=== PATIENT | female | born 1985 | race Caucasian/White ===

== ENCOUNTER → 2021-06-14 12:58 | Outpatient (BNVA) | payer BC, SELFPAY | PROVIDERS: Visit Provider Nurse Practitioner Women's Health | DX: N92.6 Irregular menstruation, unspecified (principal); E89.0 Postprocedural hypothyroidism; Z86.32 Personal history of gestational diabetes | CPT/HCPCS: 81025 ==

== ENCOUNTER → 2021-06-15 15:00 | Outpatient (BNVA) | payer BC, SELFPAY | PROVIDERS: Visit Provider Obstetrics & Gynecology | DX: Z86.32 Personal history of gestational diabetes (principal) | CPT/HCPCS: 82950 ==

== ENCOUNTER → 2021-09-07 10:30 | Outpatient (BNVA) | payer BC, SELFPAY | PROVIDERS: Visit Provider Nurse Practitioner Family | DX: Z20.822 Contact with and (suspected) exposure to COVID-19 (principal) | CPT/HCPCS: 87426 ==

== ENCOUNTER 2021-12-18 10:38 | Outpatient (CLI) | payer BC, SELFPAY ==
--- NOTE | 2021-12-18 11:09 | US_ITS ---
WS: [id number] ULTRASOUND OB FOCUSED HISTORY: HYPOTHYROIDISM/SUPERVISION OF ELDERLY MULTIGRAVIDA, amniotic fluid index. COMPARISON: 06/15/2021 Single intrauterine gestation is present in vertex position. Heart rate at 180 bpm. Amniotic fluid index is calculated at 12.6 cm which is just below the 50th percentile. US/US OB limited [id number] IMPRESSION: Amniotic fluid index just below the 50th percentile for age.
== END 2021-12-18 10:39 | disposition home or self-care (01) ==
LOC: RAD 10:52
PROVIDERS: PCP Family Medicine; Visit Provider Family Medicine
DX: O09.521 Supervision of elderly multigravida, first trimester (principal); E03.9 Hypothyroidism, unspecified
CPT/HCPCS: 76815

== ENCOUNTER 2021-12-18 11:45 | Outpatient (CLI) | payer BC, SELFPAY ==
[2021-12-18 11:53] VITALS: RESP 16
[2021-12-18 11:54] VITALS: BP 139/80; PULSE 94; TEMP 36
[2021-12-18 12:09] VITALS: BP 129/72; PULSE 91
== END 2021-12-18 12:20 | disposition home or self-care (01) ==
LOC: OPOB 11:48 → OBGYN 11:49
PROVIDERS: PCP Family Medicine; Visit Provider Family Medicine
DX: O99.280 Endocrine, nutritional and metabolic diseases complicating pregnancy, unspecified trimester (principal); Z3A.00 Weeks of gestation of pregnancy not specified
CPT/HCPCS: 59025

== ENCOUNTER 2021-12-25 10:13 | Outpatient (CLI) | payer BC, SELFPAY ==
--- NOTE | 2021-12-25 10:23 | US_ITS ---
WS: [id number] ULTRASOUND OB LIMITED TECHNIQUE: Limited ultrasound examination of the fetus. CLINICAL INFORMATION: ZACKARY/HYPOTHYROIDISM COMPARISON: December 18, 2021 FINDINGS: Cervix measures 4.6 cm Single interuterine gestation. presentation is cephalic Placental location is fundal. Placenta grade: 0. heart rate 160 BPM. ZACKARY 11.4 cm [place] [id number] IMPRESSION: 1. Since C1-C2 years gestation with vertex presentation. 2. Fundal placenta. 3. Cervix measures 4.6 cm. 4. ZACKARY 11.4 cm just below the median for gestational age. This compares to 12. 5 cm on December 18, 2021
== END 2021-12-25 10:14 | disposition home or self-care (01) ==
LOC: RAD 10:18
PROVIDERS: PCP Family Medicine; Visit Provider Family Medicine
DX: O09.521 Supervision of elderly multigravida, first trimester (principal); E03.9 Hypothyroidism, unspecified; Z3A.00 Weeks of gestation of pregnancy not specified
CPT/HCPCS: 76816

== ENCOUNTER 2021-12-25 11:15 | Outpatient (CLI) | payer BC, SELFPAY ==
[2021-12-25 11:24] VITALS: BP 112/71; PULSE 96; TEMP 35.9
[2021-12-25 11:31] VITALS: BMI 31.3
--- NOTE | 2021-12-25 11:43 | P.ANESASSM_ITS ---
Pre-Anesthetic Assessment Height/Weight: Height 1.68 m Temp Pulse BP 96.6 F L 96 112/71 12/25/21 11:24 12/25/21 11:24 12/25/21 11:24 Was Beta Abigail taken within 24 hours: N/A Was Clonidine taken within 24 hours: N/A Social No alcohol and No tobacco Exam alert, oriented x 3, clear to auscultation bilaterally and regular rate & rhythm Airway Submandibular: within normal limits Cervical ROM: within normal limits Mallampati: Class III Pulmonary None reported CV/HEM None reported None reported Hepatic None reported GI Gastroesophageal Reflux Disease Metabolic Thyroid Disease Status post radioactive iodine treatment for Graves disease now hypothyroid Hx of gestational diabetes Musc/skel Hx of bulging disc L5-S1 Neuropsych None reported Anesthetic Plan ASA status: 2 Anesthesia: Anesthesia Evaluation and Regional (specify below) Other: I discussed with patient the risk and benefits of labor epidural including PDPH, hypotension, back pain/discomfort/bruising, catastrophic nerve injury including paralysis, abscess, hematoma, failed block, one sided block, and LAST. Patient consents to labor epidural and in case of emergency consents to general anesthesia. Risk of > 500 ml blood loss (7ml/kg in children): No Medications/Allergies Home Medications Medication Instructions Recorded Confirmed Last Taken Type cholecalciferol (vitamin D3) 10 10 mcg PO DAILY 06/14/21 09/07/21 Unknown History mcg (400 unit) capsule levothyroxine 112 mcg tablet 112 mcg PO DAILY 06/14/21 09/07/21 Unknown History (Synthroid) prenat.vits,christine,[id number]-[id number] 1 tab PO DAILY 06/14/21 09/07/21 Unknown History Allergies Allergy/AdvReac Type Severity Reaction Status Date / Time No Known Allergies Allergy Verified 09/07/21 07:35 [facility], LAT[facility] Anesthesia Medical History Graves disease has appt with [facility] endocrinology 06/18/2021 History of gestational diabetes diet controlled History of radioactive iodine thyroid ablation (~2018) No pertinent past medical history neghx: htn,dm,dvt/pe PCP: none Vitiligo Surgical History History of deviated nasal septum 2018--nasal repair done Family History Grandmother Thyroid disease Maternal Diabetes Paternal Father Heart disease Hypertension Hypercholesteremia Grandfather Heart disease Paternal Family/Other Heart disease Paternal uncle Mother Hypertension Hypercholesteremia Denies family history of Cervical cancer Ovarian cancer Breast cancer Uterine cancer Social History Smoking and tobacco status: never smoked Data Anesthesia Cardiac Studies: No Data to Display
[2021-12-25 11:50] VITALS: BP 112/71; PULSE 96; RESP 18; TEMP 35.9
== END 2021-12-25 11:49 | disposition home or self-care (01) ==
LOC: OPOB 11:16 → OBGYN 11:17
PROVIDERS: PCP Family Medicine; Visit Provider Family Medicine
DX: O26.899 Other specified pregnancy related conditions, unspecified trimester (principal); Z3A.00 Weeks of gestation of pregnancy not specified
CPT/HCPCS: 59025

== ENCOUNTER 2022-01-01 10:45 | Outpatient (CLI) | payer BC, SELFPAY ==
--- NOTE | 2022-01-01 11:33 | US_ITS ---
WS: [id number] ULTRASOUND OB LIMITED TECHNIQUE: Limited ultrasound examination of the fetus. CLINICAL INFORMATION: SUPERVISION OF ELDERLY MULTIGRAVIDA/ZACKARY COMPARISON: December 25, 2021 FINDINGS: Cervix measures 4.2 cm Single interuterine gestation. presentation is vertex Placental location is fundal. Placenta grade: 1 heart rate 164 BPM. ZACKARY 10.0 cm compared to 11.4 cm December 25, 2021 US/[place] [id number] IMPRESSION: 1. Closed cervix measures 4.2 CM. 2. Single intrauterine gestation with vertex presentation. 3. ZACKARY 10.0 cm at the 10th percentile for gestational age 4. Single intrauterine gestation with vertex presentation.
== END 2022-01-01 10:46 | disposition home or self-care (01) ==
PROVIDERS: PCP Family Medicine; Visit Provider Family Medicine
DX: O09.529 Supervision of elderly multigravida, unspecified trimester (principal)
CPT/HCPCS: 76816

== ENCOUNTER 2022-01-01 11:58 | Outpatient (CLI) | payer BC, SELFPAY ==
[2022-01-01 12:06] VITALS: RESP 17
[2022-01-01 12:09] VITALS: BMI 31.9
[2022-01-01 12:14] VITALS: BP 117/68; PULSE 100; TEMP 35.9
[2022-01-01 12:30] VITALS: BP 113/66; PULSE 87
[2022-01-01 12:44] VITALS: BP 109/63; PULSE 90
== END 2022-01-01 12:54 | disposition home or self-care (01) ==
LOC: OPOB 11:59 → OBGYN 11:59
PROVIDERS: PCP Family Medicine; Visit Provider Family Medicine
DX: O99.280 Endocrine, nutritional and metabolic diseases complicating pregnancy, unspecified trimester (principal); Z3A.00 Weeks of gestation of pregnancy not specified
CPT/HCPCS: 59025

== ENCOUNTER 2022-01-08 10:49 | Outpatient (CLI) | payer BC, SELFPAY ==
--- NOTE | 2022-01-08 10:59 | US_ITS ---
WS: [id number] BIOPHYSICAL PROFILE AMNIOTIC FLUID HISTORY: Hypothyroidism, SUPERVISION COMPARISON: 01/01/2022. Cardiac activity: 160 bpm. Cervix: closed. Placenta: Fundal, no previa or abruption. Placenta grade: 2 Parameters are as follows: Breathin Movement: 2 Tone: 2 Fluid volume: 2 Amniotic fluid index: 7.2 cm. Largest vertical pocket 2.3 cm. US/US OB F/U w BPP wo NST IMPRESSION: 1. Biophysical profile score: 8/8. 2. Oligohydramnios. Notified Jordan Archuleta MD at time of examination by brand representative.
== END 2022-01-08 10:50 | disposition home or self-care (01) ==
PROVIDERS: PCP Family Medicine; Visit Provider Family Medicine
DX: E03.9 Hypothyroidism, unspecified (principal); O09.521 Supervision of elderly multigravida, first trimester; O41.01X0 Oligohydramnios, first trimester, not applicable or unspecified
CPT/HCPCS: 76816; 76819

== ENCOUNTER 2022-01-08 11:45 | Outpatient (CLI) | payer BC, SELFPAY ==
[2022-01-08 11:45] VITALS: BMI 32.5
[2022-01-08 11:53] VITALS: BP 120/65; PULSE 107
[2022-01-08 12:30] VITALS: BP 120/65; PULSE 107
== END 2022-01-08 12:30 | disposition home or self-care (01) ==
LOC: OPOB 11:45 → OBGYN 11:46
PROVIDERS: PCP Family Medicine; Visit Provider Family Medicine
DX: O09.519 Supervision of elderly primigravida, unspecified trimester (principal); Z3A.00 Weeks of gestation of pregnancy not specified
CPT/HCPCS: 59025; 99211

== ENCOUNTER → 2022-01-09 10:12 | Outpatient (BNVA) | payer BC, SELFPAY | PROVIDERS: PCP Family Medicine; Visit Provider Family Medicine | DX: Z01.812 Encounter for preprocedural laboratory examination (principal); Z20.822 Contact with and (suspected) exposure to COVID-19 | CPT/HCPCS: 87635 ==

== ENCOUNTER 2022-01-10 06:04 | Inpatient (IN) | payer BC, SELFPAY ==
[2022-01-10] VITALS (60 sets, daily range): BP systolic 100–130; BP diastolic 55–74; PULSE 72–97; RESP 16; TEMP 35.8–35.9; O2SAT 96–100
[2022-01-10 07:01] LABS: Basophils % 0.3 %; Eosinophils # 0.1 10^3/uL (0.0-0.8); Eosinophils % 0.8 %; Hematocrit 37.1 % (37.0-47.0); Hemoglobin 12.4 g/dL (11.5-15.3); Lymphocytes # 2.1 10^3/uL (0.8-4.8); Lymphocytes % 23.2 %; Mean Corpuscular HGB Conc 33.4 g/dL (30.0-36.0); Mean Corpuscular Hemoglobin 30.1 pg (28.0-34.0); Mean Platelet Volume 10.4 fL (7.4-10.4); Monocytes # 0.5 10^3/uL (0.2-0.9); Monocytes % 5.7 %; Neutrophils % 69.4 %; Nucleated Red Blood Cells % 0 %; Platelet Count 197 10^3/cmm (130-400); Red Blood Count 4.12 10^6/uL (4.1-5.3); Red Cell Distribution Width 13.4 % (12.1-15.1); White Blood Count 9.1 10^3/uL (4.0-10.0)
[2022-01-10] MEDS: miSOPROStol 100 mcg tablet 25 MCG VAGINAL ×2 (07:21→11:25)
--- NOTE | 2022-01-10 08:40 | P.HP_ITS ---
Providers/Chief Complaint Admitting Physician: Jordan Archuleta MD Primary Care Provider: Jordan Archuleta MD Chief Complaint: INDUCTION OF LABOR History of Present Illness Alexia Chaudhry is a 36 year old at 39.2 weeks by LMP consistent with 8-week ultrasound. Her is complicated by advanced maternal age, hypothyroidism on levothyroxine, ZACKARY of 7.2, elevated 1 hour GTT with normal 3- hour GTT. The patient presents to labor and delivery triage for induction of labor secondary to borderline oligohydramnios. The patient feels well at this time. She denies any chest pains, shortness of breath, nausea, vomiting, diarrhea, constipation, fever, dysuria, leakage of fluid, vaginal bleeding. Upon admission the patient is 1 cm dilated, thick and high. Medications/Allergies Home Medications Medication Instructions Recorded Confirmed Last Taken Type levothyroxine 112 mcg tablet 112 mcg PO DAILY 06/14/21 01/10/22 01/10/22 04:00 History (Synthroid) prenat.vits,christine,fav-itwr-hjclm 1 tab PO DAILY 06/14/21 01/10/22 1 Day Ago History ~01/09/22 Allergies Allergy/AdvReac Type Severity Reaction Status Date / Time No Known Allergies Allergy Verified 01/10/22 06:34 PFSH Acute PFSH: Medical History Graves disease has appt with [facility] endocrinology 06/18/2021 History of gestational diabetes diet controlled History of radioactive iodine thyroid ablation (~2017) No pertinent past medical history neghx: htn,dm,dvt/pe PCP: none Vitiligo Surgical History History of deviated nasal septum 2018--nasal repair done Family History Grandmother Thyroid disease Maternal Diabetes Paternal Father Heart disease Hypertension Hypercholesteremia Grandfather Heart disease Paternal Family/Other Heart disease Paternal uncle Mother Hypertension Hypercholesteremia Denies family history of Cervical cancer Ovarian cancer Breast cancer Uterine cancer Social History Smoking and tobacco status: never smoked Female Reproductive History: : 2 Vitals/I&O/Wt Last Vital Signs Pulse 87 01/10/22 08:12 Resp 16 01/10/22 06:26 BP 117/66 01/10/22 08:12 Weight last 48 hrs Weight 202 lb Physical Exam Narrative: General: Alert and oriented x3 Eyes: Pupils equal round and reactive to light and accommodation Mouth: Mucous membranes moist, pharynx non-erythematous Cardiac: Regular rate and rhythm without murmurs Lungs: Clear to auscultation bilaterally without wheezes, crackles or rhonchi Abdomen: Soft, non-tender, fundus consistent with gestational age Extremities: Trace edema in the bilateral lower extremities Data : 01/10/22 06:35 A&P Assessment and plan (1) Intrauterine : Status: Acute (2) Hypothyroidism associated with surgical procedure: Status: Acute (3) Oligohydramnios: Status: Acute Plan The patient is doing well at this time. heart tones are in the mid 140s with moderate variability and good accelerations with a category 1 heart tone tracing. The patient is not having significant contractions on her own. We will plan to place Cytotec for induction of labor secondary to borderline oligohydramnios and proceed from there. All questions were answered. The patient and her are in agreement with current plan of care. Attestations Medical Necessity Statement*: The patient will be here for greater than 2 midnights due to routine intrapartum and management of labor and delivery. Coding Level of Care Code Acute Chinese Language Professor for Chg Fwd Diagnoses Intrauterine Z34.90 Hypothyroidism associated with surgical procedure E89.0 Oligohydramnios O41.00X0
[2022-01-10] MEDS: lactated ringers 1,000 ML 999 ML IV ×2 (18:16→19:17)
[2022-01-10] MEDS: ondansetron 2 mg/ML SDV 2 mL 4 MG IVP (18:47)
--- NOTE | 2022-01-10 19:19 | ANES.PAUD2 ---
Pre-Anesthetic Update Pre-Anesthetic Assessment: Date of Surgery/Procedure: 01/10/22 Any changes to Pre-Anesthetic Assessment?: No Labs Last 48hrs: Short CBC 01/10/22 Range/Units 06:35 WBC 9.1 (4.0-10.0) 10^3/ uL Hgb 12.4 (11.5-15.3) g/dL Hct 37.1 (37.0-47.0) % MCV 90.0 (81-99) fl Plt Count 197 (130-400) 10^3/c mm Neut % (Auto) 69.4 % Neut # (Auto) 6.30 (1.8-7.7) 10^3/u L Vitals: Temperature 96.4 F L 01/10/22 13:43 Pulse Rate 77 01/10/22 19:16 Pulse Rhythm 01/10/22 06:52 Pulse Strength 3+ Normal 01/10/22 08:00 Respiratory Rate 16 01/10/22 06:26 Respiratory Effort Non-Labored 01/10/22 06:52 Respiratory Depth Normal 01/10/22 06:52 Respiratory Patter n 01/10/22 08:00 Blood Pressure 129/67 01/10/22 19:16 Pulse Oximetry 98 01/10/22 19:12 Oxygen Delivery Me thod 01/10/22 06:52 Exam: Pre-Anes Outpt Exam: alert, oriented x 3, clear to auscultation bilaterally and regular rate & rhythm Cardiac Studies: No Data to Display
--- NOTE | 2022-01-10 19:19 | ANES.PROC ---
Anesthesia Procedures Procedure/Date: 01/10/22 Epidural: Time Out Performed: Yes Consents Signed: Procedure Consent Consent: requested by attending/covering physician, from patient, risks and benefits reviewed and patient agrees to proceed Lumbar Level: L3-L4 Epidural position: sitting Epidural procedure: sterile prep of area, 1% lidocaine to numb the area, 18 g needle, neg for paresthesia, test dose given, 1.5% xylocaine 1:200k epi, placed PCEA, no systemic response, sterile dressing applied and 0.2% Ropiavacaine @ mls/hr (13) Additional Comments: HUGH at 5cm, cath at 10cm, bolused 5mls of 2% lido PF
[2022-01-10] MEDS: dextrose 5%-lactated ringers 1,000 ML 125 ML IV (20:17)
[2022-01-10] MEDS: oxytocin 30 UNIT/500 ML BAG IV (22:44)
[2022-01-11] VITALS (22 sets, daily range): BP systolic 96–127; BP diastolic 53–78; PULSE 66–93; RESP 16–18; TEMP 35.8–36.8; O2SAT 96–98
--- NOTE | 2022-01-11 03:17 | PM.DELIVERY ---
Delivery Note: Date of delivery: January 11, 2022 Pre-delivery diagnoses: 1. Intrauterine at 39.3 weeks gestation 2. Hypothyroidism on levothyroxine 3. Borderline oligohydramnios 4. Advanced maternal age 5. Elevated 1 hour GTT with normal 3-hour GTT Post-delivery diagnoses: 1. Intrauterine status post spontaneous vaginal delivery at 39.3 weeks gestation 2. Hypothyroidism on levothyroxine 3. Borderline oligohydramnios 4. Advanced maternal age 5. Elevated 1 hour GTT with normal 3-hour GTT Procedure: Spontaneous vaginal delivery Delivering Physician: Jordan Archuleta MD Estimated blood loss (mL): 100 Findings: Alexia Chaudhry is a 36 year old G2 now P2 status post spontaneous vaginal delivery at 39.3 weeks by LMP consistent with 8-week ultrasound.? Her was complicated by advanced maternal age, hypothyroidism on levothyroxine, ZACKARY of 7.2, elevated 1 hour GTT with normal 3-hour GTT. Pre-Delivery Course: The patient was admitted for induction of labor on the morning of 01/10/2022 secondary to borderline oligohydramnios and being past 39 weeks gestation. She was 1 cm dilated upon admission and given Cytotec. She received 2 doses of Cytotec and began to have regular contractions and made good change. By the evening she was changing to 3 to 4 cm, so she received a laboring epidural. The patient continued to make good change but her contractions started to space out, so she was started on IV Pitocin for augmentation of labor. The patient was complete by 12:26 AM on 01/11/2022. Delivery: The patient began pushing at 12:51 AM on 01/11/2022. The patient pushed well and the delivered in the OA position at 12:53 AM on 01/11/2022. The right shoulder was the anterior shoulder and it delivered with ease. The rest of the infant delivered with ease. The infant's mouth and nose were bulb suctioned by myself. The was placed on the mother's chest where the nurses were waiting to care for her. The infant had a weak cry upon delivery. The 's cord was clamped after approximately 1.5 minutes by myself and cut by the 's father. Cord blood was obtained. The cord was then drained of blood and uterine massage was carried out. The placenta delivered without complication at 12:58 AM on 01/11/2022. The placenta was noted to be intact with a central umbilical cord insertion site. The uterus was massaged and noted to be firm and midline. The cervix was inspected and no lacerations were noted. The vaginal was inspected and no lacerations were noted. There was a minimal abrasion present. It was not bleeding. No suturing was necessary. Currently the patient is doing well. History History History 1 Term 1 Miscarriages/Ectopic 0 0 Living Children 1 A&P Assessment and plan (1) Spontaneous vaginal delivery: Status: Acute Coding Level of Care Code Acute Storeroom Clerk for Chg Fwd Diagnoses Spontaneous vaginal delivery O80
[2022-01-11] MEDS: ibuprofen 800 mg tablet PO ×3 (04:16→21:04)
[2022-01-11] MEDS: lanolin oint 7 gm 1 APPLIC TOPICAL (04:16)
[2022-01-11] MEDS: benzocaine-menthol 78 gm Canister 1 SPRAY TOPICAL (04:17)
[2022-01-11] MEDS: docusate sodium 100 mg Capsule PO ×2 (08:00→18:34)
[2022-01-11] MEDS: levothyroxine 137 mcg Tablet PO (08:00)
[2022-01-11] MEDS: HYDROcodone-acetaminophen 5-325 mg Tablet PO (10:01)
[2022-01-11] MEDS: prenatal vitamin Capsule 1 CAP PO (15:01)
[2022-01-11 15:18] LABS: Hematocrit 37.9 % (37.0-47.0); Hemoglobin 12.7 g/dL (11.5-15.3); Mean Corpuscular HGB Conc 33.5 g/dL (30.0-36.0); Mean Corpuscular Hemoglobin 30.3 pg (28.0-34.0); Mean Corpuscular Volume 90.5 fl (81-99); Platelet Count 192 10^3/cmm (130-400); Red Blood Count 4.19 10^6/uL (4.1-5.3); Red Cell Distribution Width 13.4 % (12.1-15.1); White Blood Count 12.7 10^3/uL (4.0-10.0)
[2022-01-12 05:00] VITALS: BP 121/74; PULSE 89; RESP 18; TEMP 36.6
[2022-01-12] MEDS: levothyroxine 137 mcg Tablet PO (07:46)
[2022-01-12 07:48] VITALS: PULSE 160; RESP 40; TEMP 36.8; O2SAT 98
--- NOTE | 2022-01-12 08:09 | P.PN_ITS ---
Subjective Subjective: The patient is doing well today. She is ambulating, voiding, passing gas and tolerating food by mouth. Her bleeding is slowing down well her pain is well controlled. Vitals/I&O/Wt Last Vital Signs Temp 98.3 F 01/12/22 07:48 Pulse 160 H 01/12/22 07:48 Resp 40 H 01/12/22 07:48 BP 121/74 01/12/22 05:00 Pulse Ox 98 01/12/22 07:48 01/11/22 01/12/22 01/12/22 22:59 06:59 14:59 Intake Total 1999 Balance 1999 Physical Exam Narrative: General: Alert and oriented x3 Cardiac: Regular rate and rhythm without murmurs Lungs: Clear to auscultation bilaterally without wheezes, crackles or rhonchi Abdomen: Soft, mild tenderness over uterus. The uterus is firm and 2 cm below the umbilicus. Extremities: Trace edema in the bilateral lower extremities Urinary Catheter Management: Mckeon: Cath Placed During This Visit: yes, but has since been removed by the nurse Reason for Continuing Indwelling Catheter: Decision to DC Catheter Urinary Catheter Date of Insertion: 01/10/22 Urinary Catheter Time of Insertion: 19:40 Date Urinary Catheter Removed: 01/11/22 Time Urinary Catheter Discontinued: 00:46 Data : 01/11/22 15:05 A&P Assessment and plan (1) Spontaneous vaginal delivery: Status: Acute Plan The patient is doing well at this time. She is showing no signs of complications. Her hemoglobin is stable. We will plan to discharge home tomorrow as long as she continues to do well . Attestations Medical Necessity Statement*: The patient's stay will cross 2 midnights as she recovers after vaginal delivery. Coding Level of Care Code Acute Senior Technical Support Analyst for [employer] Diagnoses Spontaneous vaginal delivery O80
[2022-01-12] MEDS: ibuprofen 800 mg tablet PO ×3 (08:37→20:22)
[2022-01-12] MEDS: docusate sodium 100 mg Capsule PO ×2 (08:37→18:40)
[2022-01-12 11:42] VITALS: BP 114/69; PULSE 79; RESP 18
[2022-01-12 18:14] VITALS: BP 128/71; PULSE 80; RESP 18; TEMP 36.8
[2022-01-12] MEDS: prenatal vitamin Capsule 1 CAP PO (18:40)
[2022-01-12 21:00] VITALS: BP 118/66; PULSE 91; RESP 18; TEMP 36.7
[2022-01-13 03:00] VITALS: BP 120/74; PULSE 80; RESP 18; TEMP 36.7
[2022-01-13] MEDS: levothyroxine 137 mcg Tablet PO (07:53)
--- NOTE | 2022-01-13 08:27 | PM.DCS ---
Discharge Providers Date of Admission: 01/10/22 06:04 Date of Discharge: January 13, 2022 Attending Provider at Admission: Jordan Archuleta MD Attending Provider at Discharge: Jordan Archuleta MD Primary Care Provider: Jordan Archuleta MD Diagnoses at Discharge Discharge Diagnosis (1) Spontaneous vaginal delivery: Status: Acute Other Information Additional DC diagnoses/information: 1.? Intrauterine status post spontaneous vaginal delivery at 39.3 weeks gestation 2.? Hypothyroidism on levothyroxine 3.? Borderline oligohydramnios 4.? Advanced maternal age 5.? Elevated 1 hour GTT with normal 3-hour GTT 6. Delivery of female weighing 6 pounds 7 ounces with Apgars of 6 and 8 Reason for Visit Reason for Visit: INDUCTION OF LABOR Hospital Course Hospital Course Predelivery course: The patient was admitted for induction of labor on the morning of 01/10/2022 secondary to borderline oligohydramnios and being past 39 weeks gestation.? She was 1 cm dilated upon admission and given Cytotec.? She received 2 doses of Cytotec and began to have regular contractions and made good change.? By the evening she was changing to 3 to 4 cm, so she received a laboring epidural.? The patient continued to make good change but her contractions started to space out, so she was started on IV Pitocin for augmentation of labor.? The patient was complete by 12:26 AM on 01/11/2022. Delivery: The patient began pushing at 12:51 AM on 01/11/2022.? The patient pushed well and the infant delivered in the OA position at 12:53 AM on 01/11/2022.? The right shoulder was the anterior shoulder and it delivered with ease.? The rest of the infant delivered with ease.? The infant's mouth and nose were bulb suctioned by myself.? The was placed on the mother's chest where the nurses were waiting to care for her.? The had a weak cry upon delivery.? The infant's cord was clamped after approximately 1.5 minutes by myself and cut by the infant's father.? Cord blood was obtained.? The cord was then drained of blood and uterine massage was carried out.? The placenta delivered without complication at 12:58 AM on 01/11/2022.? The placenta was noted to be intact with a central umbilical cord insertion site.? The uterus was massaged and noted to be firm and midline.? The cervix was inspected and no lacerations were noted.? The vaginal was inspected and no lacerations were noted.? There was a minimal abrasion present.? It was not bleeding.? No suturing was necessary.? course: the patient has done well. Her bleeding is decreasing well. She is ambulating, voiding, passing gas and tolerating food by mouth. Her pain is well controlled. Overall she is showing no signs of complications. She will plan to follow-up with me at 6 weeks or sooner if needed. All questions were answered. The patient and her are in agreement with discharge home at this time. Physical Exam Narrative: General: Alert and oriented x3 Cardiac: Regular rate and rhythm without murmurs Lungs: Clear to auscultation bilaterally without wheezes, crackles or rhonchi Abdomen: Soft, mild tenderness over uterus. The uterus is firm and 2 cm below the umbilicus. Extremities: Trace edema in the bilateral lower extremities Urinary Catheter Management: Mckeon: Cath Placed During This Visit: yes, but has since been removed by the nurse Reason for Continuing Indwelling Catheter: Decision to DC Catheter Urinary Catheter Date of Insertion: 01/10/22 Urinary Catheter Time of Insertion: 19:40 Date Urinary Catheter Removed: 01/11/22 Time Urinary Catheter Discontinued: 00:46 Discharge Data Studies Completed and Pending Laboratory Results WBC 12.7 10^3/uL (4.0-10.0) H 01/11/22 15:05 RBC 4.19 10^6/uL (4.1-5.3) 01/11/22 15:05 Hgb 12.7 g/dL (11.5-15.3) 01/11/22 15:05 Hct 37.9 % (37.0-47.0) 01/11/22 15:05 MCV 90.5 fl (81-99) 01/11/22 15:05 MCH 30.3 pg (28.0-34.0) 01/11/22 15:05 MCHC 33.5 g/dL (30.0-36.0) 01/11/22 15:05 RDW 13.4 % (12.1-15.1) 01/11/22 15:05 Plt Count 192 10^3/cmm (130-400) 01/11/22 15:05 MPV 10.0 fL (7.4-10.4) 01/11/22 15:05 Neut % (Auto) 69.4 % 01/10/22 06:35 Lymph % (Auto) 23.2 % 01/10/22 06:35 Chambers % (Auto) 5.7 % 01/10/22 06:35 Eos % (Auto) 0.8 % 01/10/22 06:35 Baso % (Auto) 0.3 % 01/10/22 06:35 Neut # (Auto) 6.30 10^3/uL (1.8-7.7) 01/10/22 06:35 Lymph # (Auto) 2.1 10^3/uL (0.8-4.8) 01/10/22 06:35 Chambers # (Auto) 0.5 10^3/uL (0.2-0.9) 01/10/22 06:35 Eos # (Auto) 0.1 10^3/uL (0.0-0.8) 01/10/22 06:35 Baso # (Auto) 0.0 10^3/uL (0.0-0.1) 01/10/22 06:35 Nucleated RBC % (auto) 0 % 01/10/22 06:35 Nucleated RBCs # 0.0 /100WBC 01/10/22 06:35 Vitals Last Vital Signs Temp 98.0 F 01/13/22 03:00 Pulse 80 01/13/22 03:00 Resp 18 01/13/22 03:00 BP 120/74 01/13/22 03:00 Pulse Ox 98 01/12/22 07:48 Discharge Plan Discharge Patient Disposition: Home Condition: Good Prescriptions: New levothyroxine 137 mcg Tablet 137 mcg PO QAM Qty: 30 0RF ibuprofen 800 mg Tablet 800 mg PO TID Qty: 60 0RF Continued prenat.vits,christine,ocu-panw-izqnv Tablet 1 tab PO DAILY 0RF Discontinued levothyroxine [Synthroid] 112 mcg tablet 112 mcg PO DAILY 0RF Rx Instructions: takes 9 1/2 pills over the course of a week Discharge Orders: Discharge Order (Routine); Ordered 01/13/22 Ordered By: Jordan Archuleta Referrals: Jordan Archuleta MD [Primary Care Provider] - 6 Weeks Discharge Diet: Usual diet Discharge Activity: Increase activity as tolerated Patient Instructions: Depression (DC), Expression, Collection and Storage of Breast Milk (DC), Bleeding (DC), Preeclampsia and Eclampsia After Delivery (GEN), OB Discharge Report, OB Food/Drug Interaction Guide, Opioid Safety, OB [facility], OB Vaginal Deliveries Activity Restrictions/Additional Instructions: Nothing per vagina for 6 weeks. If you have any further concerns, please contact Dr. Archuleta's office for further evaluation. Discharge Attestations Time Spent in Discharge Care*: greater than 30 min Quality Metrics Clinical Quality Measures [ No reported AMI, CVA or VTE this stay] Coding Level of Care Code Acute Chg FW DC note Diagnoses Spontaneous vaginal delivery O80
[2022-01-13 10:44] VITALS: BP 106/68; PULSE 86; RESP 18; TEMP 36.5; O2SAT 96
--- NOTE | 2022-01-15 17:38 | ANE.PACU2 ---
Inpatient post-anesthesia follow up: Airway intact: Yes Vital signs: Temperature 97.7 F Pulse Rate 86 Respiratory Rate 18 Blood Pressure 106/68 Pulse Oximetry 96 Oxygen Delivery Me thod Room Air Oxygen Flow Rate Fraction of Inspir ed Oxygen Hydration adequate: Yes Nausea and vomiting: No Pain level: 1 Mental status: Baseline Additional Comments: EMR review
== END 2022-01-13 10:10 | disposition home or self-care (01) | DRG 806 ==
PROVIDERS: Admitting Provider Family Medicine; PCP Family Medicine; Visit Provider Family Medicine
DX: O99.284 Endocrine, nutritional and metabolic diseases complicating childbirth (principal); O41.03X0 Oligohydramnios, third trimester, not applicable or unspecified; Z37.0 Single live birth; Z3A.39 39 weeks gestation of pregnancy; E03.9 Hypothyroidism, unspecified
CPT/HCPCS: 36415; 51702; 59025; 59409; 85025; 85027; J2405; J2795